=== PATIENT | female | born 1990 | race Caucasian/White ===

== ENCOUNTER 2018-10-25 13:47 | Emergency (ER) | payer OTHER ==
[2018-10-25 14:20] VITALS: BP 128/77
--- NOTE | 2018-10-25 14:32 | UC ---
Lower Extremity/Ankle HPI - HPI Summary HPI Summary: RIGHT GREAT TOE PAIN FOR ONE WEEK. PT STATES SHE HAS JOINT PAIN OF HER GREAT TOES ON AND OFF. ONE WEEK AGO SHE WAS IN A [place] AND WAS WEARING HIGH HEELS WHICH SHE THINKS CAUSED THE PAIN. - History of Current Complaint Chief Complaint: UCLowerExtremity Stated Complaint: R GREAT TOE COMPLAINT Time Seen by Provider: 10/25/18 14:29 Hx Obtained From: Patient Hx Last Menstrual Period: 10/17/18 Onset/Duration: Sudden Onset, Lasting Days Severity Initially: Severe Severity Currently: Severe Pain Intensity: 7 Aggravating Factor(s): Standing, Ambulation Able to Bear Weight: Yes - Allergies/Home Medications Allergies/Adverse Reactions: Allergies Allergy/AdvReac Type Severity Reaction Status Date / Time No Known Allergies Allergy Verified 10/25/18 14:08 Home Medications: Home Medications Ibuprofen TAB* [Advil TAB*] 200 mg PO Q6H PRN 10/25/18 [History Confirmed ] Methylphenidate TAB* [Ritalin TAB*] 10 mg PO BID 10/25/18 [History Confirmed 01/03] Naproxen Sodium [Aleve] 440 mg PO Q12H PRN 10/25/18 [History Confirmed 10/25/18] Oral Contraceptive 1 tab PO DAILY 10/25/18 [History] PMH/Surg Hx/FS Hx/Imm Hx Previously Healthy: Yes - Surgical History Surgical History: Yes Surgery Procedure, Year, and Place: TONSILLECTOMY - Family History Known Family History: Positive: Hypertension - Social History Alcohol Use: Occasionally Substance Use Type: Marijuana Substance Use Comment - Amount & Last Used: OCCASIONAL Smoking Status (MU): Never Smoked Tobacco Review of Systems All Other Systems Reviewed And Are Negative: Yes Musculoskeletal: Positive: Arthralgia, Decreased ROM, Myalgia Is Patient Immunocompromised?: No Physical Exam Vital Signs: Initial Vital Signs Temp 98.5 F 10/25/18 14:12 Pulse 76 10/25/18 14:12 Resp 18 10/25/18 14:12 BP 128/77 10/25/18 14:12 Pulse Ox 100 10/25/18 14:12 Lower Extremity Course/Dx - Course Course Of Treatment: hx obtained, exam performed ,meds reviewed, xray obtained and negative for fracture or other process. taped for support and post op shoe provided. - Differential Dx/Diagnosis Differential Diagnosis/HQI/PQRI: Contusion, Fracture (Closed), Sprain, Strain Provider Diagnosis: Sprain of great toe, right Discharge - Sign-Out/Discharge Documenting (check all that apply): Patient Departure All imaging exams completed and their final reports reviewed: No Studies - Discharge Plan Condition: Stable Disposition: HOME Patient Education Materials: Arthralgia (ED) Referrals: No Primary Care Phys,NOPCP [Primary Care Provider] - Additional Instructions: 1. continue with foot soaks, 2. Use the post op shoe for support 3. Ibuprofen 400 mg every 4-6 hours for pain 4. FOllow up if not improving - Billing Disposition and Condition Condition: STABLE Disposition: Home - Attestation Statements Provider Attestation: I was available for consult. This patient was seen by the KELECHI. The patient was not presented to , seen by or examined by nc -Jake Limon MD
--- NOTE | 2018-10-26 16:09 | UC ---
- Progress Note Progress Note: Patient Name: DAMI CARLISLE Medical Record#: [id number] Ordering Physician: Neva Chakraborty NP Acct.#: [id number] : 1990 Age: 28 Sex: F Location: [facility] [place] Exam Date: 10/25/18 1456 ADM Status: REG ER Order Information: TOE RIGHT GREAT Accession Number: [id number] CPT: 89617 Indication: RIGHT great toe joint pain. Comparison: No relevant prior exams available on the [facility] for comparison. Technique: 3 views of the RIGHT great toe. Report: Negative for fracture. Normal articular alignment and preserved joint spaces. Negative for periarticular osteopenia, osseous erosions, or abnormal soft tissue contour. IMPRESSION: #. Negative exam. <Electronically signed by Simeon Aldana MD in [place]> 10/25/18 1522 Dictated By: Simeon Aldana MD Dictated Date/Time: 10/25/18 1522 Transcribed Date/Time: 10/25/18 1521 Copy to: CC:Miranda Mars MD; Neva Chakraborty NP; No Primary Care Phys,NOPCP Imaging - [facility] [address] [place] [address] ph ([phone]) ph ([phone]) ph ([phone]) This report is only to be considered final once signed by the Provider(s) as displayed in the "<Electronically Signed by >" field (s). Absence of a signature indicates the report is in a draft status and still needs to be finalized. In the event this document was created by someone other than the signing Provider, the individual initiating the document will be listed in the "Entered by:" or "Dictated by:" mcdonald. 1 of 1 Course/Dx - Diagnoses Provider Diagnoses: Sprain of great toe, right Discharge - Sign-Out/Discharge Documenting (check all that apply): Post-Discharge Follow Up All imaging exams completed and their final reports reviewed: Yes - Discharge Plan Condition: Stable Disposition: HOME Patient Education Materials: Arthralgia (ED) Referrals: No Primary Care Phys,NOPCP [Primary Care Provider] - Additional Instructions: 1. continue with foot soaks, 2. Use the post op shoe for support 3. Ibuprofen 400 mg every 4-6 hours for pain 4. FOllow up if not improving - Billing Disposition and Condition Condition: STABLE Disposition: Home
== END 2018-10-25 15:39 | disposition home or self-care (01) ==
LOC: UCCORT 13:47
DX: S93.501A Unspecified sprain of right great toe, initial encounter (principal); X58.XXXA Exposure to other specified factors, initial encounter; Y93.89 Activity, other specified; Y92.9 Unspecified place or not applicable
CPT/HCPCS: 99202; G0463

== ENCOUNTER 2020-12-16 13:44 | Inpatient (IN) ==
[2020-12-16] MEDS ORDERED: Lactated Ringers 1000 ml BAG 1,000 ML IV ONE (17:10)
[2020-12-16] MEDS ORDERED: Buffered Lidocaine 1% SYRIN 1 ml INTRADERM ONE (17:10)
[2020-12-16 17:20] LABS: Rapid COVID-19 Molecular Undetected (Undetected)
[2020-12-16 17:26] LABS: Urine Benzodiazepine Screen None Detected (None Detect); Urine Cannabinoids Screen None Detected (None Detect); Urine Opiates Screen None Detected (None Detect)
[2020-12-16 17:40] LABS: Urine Appearance Cloudy; Urine Bilirubin Negative (Negative); Urine Blood 3+ (Negative); Urine Color Yellow; Urine Glucose Negative (Negative); Urine Ketones Negative (Negative); Urine Nitrite Negative (Negative); Urine Protein Negative (Negative); Urine Specific Gravity 1.013 (1.002-1.030); Urine Urobilinogen Negative (Negative)
[2020-12-16 17:49] LABS: ABS Lymphocytes 1.7 10^3/ul (1.0-4.8); ABS Monocytes 1.1 10^3/ul (0-0.8); ABS Neutrophils 10.2 10^3/ul (1.5-7.7); Eosinophil % 0.3 %; Hematocrit 40 % (35-47); Hemoglobin 13.4 g/dL (12.0-16.0); Lymphocyte % 13.3 %; Mean Corpuscular HGB Conc 34 g/dL (31-36); Mean Corpuscular Hemoglobin 31 pg (27-31); Mean Corpuscular Volume 91 fL (80-97); Mean Platelet Volume 9.1 fL (7.4-10.4); Nucleated Red Blood Cells % 0.2; Platelet Count 255 10^3/uL (150-450); Red Blood Count 4.38 10^6 /uL (3.70-4.87); Red Cell Distribution Width 13 % (10-15); White Blood Count 13.1 10^3/uL (3.5-10.8)
[2020-12-16] MEDS ORDERED: Lactated Ringers 1000 ml BAG 1,000 ML IV SCH ×2 (18:00→23:00)
[2020-12-16 18:04] LABS: Albumin 3.7 g/dL (3.2-5.2); Albumin/Globulin Ratio 1.2 (1-3); Calcium 8.7 mg/dL (8.6-10.3); EGFR African American 137.5 (>60); EGFR Non-African American 113.7 (>60); Globulin 3.1 g/dL (2-4); Potassium 3.8 mmol/L (3.5-5.0); Total Bilirubin 0.3 mg/dL (0.2-1.0); Total Protein 6.8 g/dL (6.4-8.9); Uric Acid 6.8 mg/dL (2.3-6.6)
[2020-12-16 18:07] LABS: Urine Bacteria 1+ (Absent); Urine Red Blood Cell Trace(0-2/hpf) (Absent); Urine Squamous Epithelial Cell Present (Absent); Urine White Blood Cell 1+(6-10/hpf) (Absent)
[2020-12-16] MEDS ORDERED: Witch Hazel PAD JAR TOPICAL PRN (22:04)
[2020-12-16] MEDS ORDERED: Dibucaine 1% OINT 28.35 GM TUBE PR PRN (22:04)
[2020-12-16] MEDS ORDERED: Oxytocin 10 UNITS/ML 1 ML VIAL IM ONE (22:04)
[2020-12-16] MEDS ORDERED: Lidocaine 1% VIAL 10 MG/ML VIAL ONE (22:29)
[2020-12-17 09:15] LABS: ABS Lymphocytes 1.5 10^3/ul (1.0-4.8); ABS Monocytes 1.1 10^3/ul (0-0.8); ABS Neutrophils 11.8 10^3/ul (1.5-7.7); Eosinophil % 0.2 %; Hematocrit 35 % (35-47); Hemoglobin 11.9 g/dL (12.0-16.0); Lymphocyte % 10.3 %; Mean Corpuscular HGB Conc 34 g/dL (31-36); Mean Corpuscular Hemoglobin 31 pg (27-31); Mean Corpuscular Volume 90 fL (80-97); Mean Platelet Volume 8.9 fL (7.4-10.4); Platelet Count 227 10^3/uL (150-450); Red Blood Count 3.85 10^6 /uL (3.70-4.87); Red Cell Distribution Width 13 % (10-15); White Blood Count 14.5 10^3/uL (3.5-10.8)
[2020-12-18 08:04] VITALS: BP 120/55
== END 2020-12-18 14:30 | disposition home or self-care (01) | DRG 560 ==
LOC: MCHOBOUT 13:44 → MCHOB 17:03
PROVIDERS: ADMIT Midwife; ATTEND Midwife